=== PATIENT | male | born 1970 | race Caucasian/White ===

== ENCOUNTER 2021-12-14 20:17 | Emergency (ER) | payer OTHER ==
[2021-12-14] MEDS ORDERED: Ketamine 50 MG/ML (10ML VIAL) ONE (21:11)
[2021-12-14] MEDS ORDERED: Boostrix 0.5 ML (Tdap) VIAL ONE (22:25)
[2021-12-14] MEDS ORDERED: CEFAZOLIN 1 GM VIAL ONE (22:25)
== END 2021-12-15 00:40 | disposition short-term general hospital (02) ==
LOC: EDSEX → BURERS 20:17
DX: S52.531B Colles' fracture of right radius, initial encounter for open fracture type I or II (principal); X58.XXXA Exposure to other specified factors, initial encounter
CPT/HCPCS: 25605; 90471; 90715; 96374; 96375; 99152; 99153; J0690

== ENCOUNTER 2023-09-13 18:38 | Emergency (ER) | payer OTHER ==
[~2023-09-13 18:38] MED LIST: Iopamidol 370 76% 100 ML VIAL ONE
[2023-09-13 19:03] LABS: #Basophils 0.1 thou/uL (0.0-0.2); #Eosinphils 0.1 thou/uL (0.0-0.7); #Lymphocytes 3.3 thou/uL (1.20-3.40); #Monocytes 0.7 thou/uL (0.11-0.59); #Neutrophils 3.3 thou/uL (1.40-6.50); %Basophils 1.6 % (0.0-1.0); %Eosinophils 1.1 % (0.0-10.0); %Monocytes 9.3 % (0.0-10.0); %Neutrophils 43.9 % (42.0-75.0); Hemoglobin 13.9 g/dL (14.0-18.0); Mean Corpuscular HGB CONC 33.8 g/dL (32.0-36.0); Mean Corpuscular Hemoglobin 34.4 pg (27.0-31.0); Platelet Count 250 10x3/uL (130-400); RBC Distribution Width 11.8 % (11.5-14.5); Red Blood Cell (RBC) Count 4.02 mill/uL (4.70-6.10); White Blood Cell (WBC) Count 7.4 10x3/uL (4.8-10.8)
[2023-09-13 19:08] LABS: Acetaminophen Less than 10 mcg/mL (10.0-30.0); Alcohol 283.6 mg/dL (Less than 10); Lipase 101 U/L (8-78); Magnesium 1.7 mg/dL (1.6-2.6); Salicylate Less than 8.0 mg/dL (15.0-30.0)
[2023-09-13 19:09] LABS: INR-International Normal Ratio 0.9; Prothrombin Time 11.7 sec (12.0-14.7)
[2023-09-13 19:10] LABS: ALT (SGPT) 42 U/L (8-55); AST (SGOT) 71 U/L (5-34); Albumin 4.4 g/dL (3.5-5.0); Alkaline Phosphatase 51 U/L (40-110); Anion Gap 21 mmol/L (10-20); BUN (Urea Nitrogen) 8 mg/dL (8.4-25.7); Bilirubin, Total 0.5 mg/dL (0.2-1.2); CK (CPK) 64 U/L (30-200); Calc. Creatinine Clearance 0 mL/min (70-130); Calcium 9.4 mg/dL (7.8-10.44); Carbon Dioxide 19 mmol/L (22-29); Chloride 104 mmol/L (98-107); Estimated GFR 81; Globulin 3.2 g/dL (2.4-3.5); Glucose 95 mg/dL (70-105); PTT 27.6 sec (22.9-36.1); Protein, Total 7.6 g/dL (6.0-8.3); Sodium 140 mmol/L (136-145)
[2023-09-13 19:12] LABS: D-Dimer Test 0.7 mcg/mL (0.27-0.43); Troponin I Less than 0.010 ng/mL (< 0.028)
[2023-09-13 20:10] LABS: Amphetamine Not Detected (NotDetected); Barbiturates Screen Not Detected (NotDetected); Benzodiazepine Screen Not Detected (NotDetected); Cocaine Metabolite Screen Not Detected (NotDetected); Methadone Not Detected (NotDetected); Methamphetamine Not Detected (NotDetected); Opiate Screen Not Detected (NotDetected); Oxycodone Screen Not Detected (NotDetected); Phencyclidine (PCP) Not Detected (NotDetected); THC/Cannabinoid Screen Not Detected (NotDetected); Tricyclic Screen Not Detected (NotDetected)
== END 2023-09-13 20:49 | disposition home or self-care (01) ==
LOC: BURERS 18:38
DX: G45.9 Transient cerebral ischemic attack, unspecified (principal); I10 Essential (primary) hypertension; F10.20 Alcohol dependence, uncomplicated; F17.220 Nicotine dependence, chewing tobacco, uncomplicated
CPT/HCPCS: 70450; 70496; 70498; 71045; 80053; 80306; 80307; 82550; 83605; 83690; 83735; 84443; 84484; 85025; 85379; 85610; 85730; 86850; 86900; 86901; 93005; Q9967